=== PATIENT | female | born 1970 | race Caucasian/White ===

== ENCOUNTER 2016-05-16 08:24 | Day surgery (SDC) | payer BC ==
[~2016-05-16 08:24] MED LIST: FENTANYL 250 MCG/5 ML AMP IV PRN; IV START KIT ONE; LACTATED RINGERS 1,000 ML IV SCH; MIDAZOLAM HCL 5 MG/5 ML VIAL IV PRN
[2016-05-16] MEDS ORDERED: IV START KIT ONE (08:36)
[2016-05-16] MEDS ORDERED: LACTATED RINGERS 0 ML ONE (08:36)
[2016-05-16] MEDS ORDERED: MIDAZOLAM HCL 5 MG/5 ML VIAL ONE (09:23)
[2016-05-16] MEDS ORDERED: FENTANYL 5 ML ONE (09:24)
[2016-05-16] MEDS ORDERED: PROPOFOL 20 ML IV ONE (09:53)
== END 2016-05-16 10:52 | disposition home or self-care (01) ==
LOC: SDC 08:24
PROVIDERS: ATTEND Internal Medicine Gastroenterology
PROC: 0DJD8ZZ Inspection of Lower Intestinal Tract, Via Natural or Artificial Opening Endoscopic (ICD-10-PCS; principal; 2016-05-16)
DX: K64.1 Second degree hemorrhoids (principal); K57.30 Diverticulosis of large intestine without perforation or abscess without bleeding; Z80.0 Family history of malignant neoplasm of digestive organs; I10 Essential (primary) hypertension; F32.9 Major depressive disorder, single episode, unspecified; E55.9 Vitamin D deficiency, unspecified
CPT/HCPCS: 45378; J3010; J2250; J7120